=== PATIENT | male | born 1960 | race Caucasian/White ===

== ENCOUNTER → 2017-12-05 | Day surgery (SDC) | payer OTHER ==
[~2017-12-05] MED LIST: ASPI325T PO; ATOR20TA PO; CLOP75 PO; LIDOCAINE HCL 1% 20 ML VIAL ONE; MULT-65 PO; WELL150T PO
--- NOTE | 2017-12-05 16:28 | RADRPT ---
EXAM DATE/TIME: 12/05/2017 13:38 [place] COMPARISON: No previous studies available for comparison. INDICATIONS : Right neck enlarged lymph node. MEDICAL HISTORY : Hypercholesterolemia. Deep venous thrombosis. Cardiac disorders. TIA. Factor V. Anxiety. SURGICAL HISTORY : Right cervical lymphadenopathy. Patent foramen ovale closure. Colonoscopy. ENCOUNTER: Initial ACUITY: 1 month PAIN SCORE: 0/10 LOCATION: Right neck ORGAN: Right lymph node SPECIMENS: Two core specimen(s) submitted for pathologic evaluation. DEVICE: 18 gauge Temno needle Post procedure scanning reveals no hematoma or other complication. The possibility does exist that the tissue obtained will be non-diagnostic. If the sample is non-elbert gnostic a repeat biopsy or surgical biopsy may need to be performed. TECHNIQUE: 1. Ultrasound guidance for needle biopsy. 2. Needle biopsy. The risks, benefits and alternatives to the procedure were explained and verbal and written consent w as obtained. The site was prepped in sterile fashion. Full sterile technique was used, including ca p, mask, sterile gloves and gown and a large sterile sheet. Hand hygiene and 2% chlorhexidine and/or betadine/alcohol prep was utilized per protocol for cutaneous antisepsis. The skin and subcutaneous tissues were infiltrated with local anesthetic solution. Sterile gel and sterile probe cover were u tilized for ultrasound guidance. With the patient on the ultrasound table, images were obtained. A needle was advanced into the identified target and the number of specimens as above obtained and mehta bmitted for pathologic evaluation. Sample was also submitted for RPMI. The patient tolerated the procedure well and left the ultrasound suite in stable condition. CONCLUSION: Uncomplicated ultrasound guided 18 gauge core biopsies of posterior right cervical lymph node. Devaughn Teixeira MD on December 05, 2017 at 16:24 Board Certified Radiologist. This report was verified electronically.
== END | disposition home or self-care (01) ==
LOC: HRAD 12:56
PROVIDERS: ATTEND Internal Medicine Hematology & Oncology
DX: C91.10 Chronic lymphocytic leukemia of B-cell type not having achieved remission (principal); Z01.818 Encounter for other preprocedural examination
CPT/HCPCS: 38505; 76942; 88305